=== PATIENT | male | born 1950 | race Caucasian/White ===

== ENCOUNTER 2018-07-05 19:36 | Inpatient (IN) | payer MEDICARE, MEDICAID ==
[~2018-07-05] VITALS: Ht 175.3 cm; Wt 85.3 kg
[2018-07-05] MEDS ORDERED: ALBUTEROL (0.083%) 2.5MG/3ML NEB HHN STA (20:01)
[2018-07-05] MEDS ORDERED: IPRATROPIUM BROMIDE (0.02%) 0.5MG/2.5ML NEB HHN STA (20:01)
[2018-07-05 20:42] LABS: HEMATOCRIT. 51.1 % (42.0-52.0); HEMOGLOBIN. 18.1 g/dL (14.0-18.0); MEAN CORPUSCULAR HEMOGLOBIN 34.3 pg (28.0-32.0); MEAN CORPUSCULAR VOLUME 96.9 fL (80.0-94.0); MEAN PLATELET VOLUME 7.3 fl (7.4-10.4); PLATELET 255 x1000/uL (130-400); RED BLOOD CELL COUNT 5.27 mill/uL (4.7-6.1); RED CELL DISTRIBUTION WIDTH 14.5 % (11.6-14.6)
[2018-07-05 20:56] LABS: CHLORIDE 86 mEq/L (98-107)
[2018-07-05 20:58] LABS: D-DIMER 0.28 mg/L FEU (<0.50); INR 1.1; PARTIAL THROMBOPLASTIN TIME 31.5 sec (23.4-31.0); PROTHROMBIN TIME 11.1 sec (9.1-11.1)
[2018-07-05 22:16] LABS: PLATELET ESTIMATE NORMAL
[2018-07-05] MEDS ORDERED: ZOLPIDEM TARTRATE 5MG TABLET PO PRN (22:30)
[2018-07-05] MEDS ORDERED: NITROGLYCERIN 0.4MG TABLET SL SL PRN (22:30)
[2018-07-05] MEDS ORDERED: GUAIFENESIN 200MG/10ML SUGAR FREE UDC PO PRN (22:30)
[2018-07-05] MEDS ORDERED: CLONIDINE 0.1MG TABLET PO PRN (22:30)
[2018-07-05] MEDS ORDERED: ONDANSETRON HCL 4MG/2ML INJ IV PRN (22:30)
[2018-07-05] MEDS ORDERED: TRAMADOL 50MG TABLET PO PRN (22:30)
[2018-07-05] MEDS ORDERED: NA PHOS,M-B/NA PHOS,DI-BA ENEMA 118ML PR PRN (22:30)
[2018-07-05] MEDS ORDERED: DIPHENHYDRAMINE 50MG/ML VIAL IV PRN (22:30)
[2018-07-05] MEDS ORDERED: MAGNESIUM/ALUMINUM HYDROXIDE/SIMETHICONE 30ML UDC PO PRN (22:30)
[2018-07-05] MEDS ORDERED: ACETAMINOPHEN 325MG TABLET PO PRN (22:30)
[2018-07-05] MEDS ORDERED: DOCUSATE SODIUM 100MG CAPSULE PO PRN (22:30)
[2018-07-05 23:17] LABS: CLARITY URINE CLEAR (CLEAR); COLOR URINE YELLOW (YELLOW); KETONES URINE NEGATIVE (NEGATIVE); LEUKOCYTE ESTERASE URINE NEGATIVE (NEGATIVE); NITRITE URINE NEGATIVE (NEGATIVE); OCCULT BLOOD URINE TRACE (NEGATIVE); PH URINE 8.5 (4.5-8.0); PROTEIN URINE 1+ (NEGATIVE); SPECIFIC GRAVITY URINE 1.019 (1.005-1.030)
[2018-07-05 23:26] LABS: *AMPHETAMINES SCREEN URINE NEGATIVE (NEGATIVE); *BARBITURATES SCREEN URINE NEGATIVE (NEGATIVE); *BENZODIAZEPINES SCREEN URINE NEGATIVE (NEGATIVE); *COCAINE SCREEN URINE NEGATIVE (NEGATIVE); METHADONE URINE SCREEN NEGATIVE (NEGATIVE); OPIATES URINE SCREEN NEGATIVE (NEGATIVE)
[2018-07-05 23:27] LABS: CANNABINOID URINE SCREEN NEGATIVE (NEGATIVE); PHENCYCLIDINE URINE SCREEN NEGATIVE (NEGATIVE)
[2018-07-06] VITALS (9 sets, daily range): BP systolic 105–142; BP diastolic 72–87
[2018-07-06] MEDS ORDERED: MORPHINE SULFATE 10 MG/ML CPJ IV PRN (01:00)
[2018-07-06] MEDS ORDERED: AZITHROMYCIN 500 MG in DEXT 5% WATER 250 ML IV SCH (01:00)
[2018-07-06] MEDS: DILTIAZEM HCL 60MG TABLET PO SCH ×5 (01:53→17:20)
[2018-07-06] MEDS ORDERED: ENOXAPARIN 80MG/0.8ML SYR SUBCUT SCH (04:00)
[2018-07-06] MEDS ORDERED: ENOXAPARIN 100MG/ML SYR SUBCUT SCH (04:13)
[2018-07-06 04:44] LABS: BG BASE EXCESS 5.4 mmol/L (-2.0-2.0); BG CARBOXYHEMOGLOBIN 2.6 % (0.5-1.5); BG DEOXYHEMOGLOBIN 9.4 % (0.0-5.0); BG FRACTION INSPIRED OXYGEN 60; BG HCO3 ACT 28.7 mmol/L (22.0-26.0); BG METHEMOGLOBIN 0.2 % (0.0-1.5); BG OXYGEN SATURATION 90.3 % (92.0-98.5); BG OXYHEMOGLOBIN 87.8 % (94.0-97.0); BG PCO2 37.8 mmHg (35.0-45.0); BG PH 7.499 (7.350-7.450); BG PO2 56.5 mmHg (75.0-100.0); BG SAMPLE SITE RIGHT RADIAL; BG TOTAL HEMOGLOBIN 16.8 g/dL (12.0-18.0); BG VENT MODE MASK - SIMPLE
[2018-07-06] MEDS: FAMOTIDINE 20MG TABLET PO SCH ×2 (08:53→20:44)
[2018-07-06] MEDS: GUAIFENESIN/DM 600MG/30MG ER TAB 12HR PO SCH ×2 (08:54→20:44)
[2018-07-06] MEDS: ASPIRIN 325MG EC TABLET PO SCH (08:54)
[2018-07-06] MEDS: ENOXAPARIN 100MG/ML SYR SUBCUT SCH ×2 (08:58→20:44)
[2018-07-06] MEDS ORDERED: ENOXAPARIN 60MG/0.6ML SYR SUBCUT SCH (09:00)
[2018-07-06] MEDS ORDERED: CEFTRIAXONE 1 G PREMIX 50 ML IV SCH (09:00)
[2018-07-06 10:24] LABS: HEMATOCRIT. 45.8 % (42.0-52.0); HEMOGLOBIN. 16.2 g/dL (14.0-18.0); MEAN CORPUSCULAR HEMOGLOBIN 34.4 pg (28.0-32.0); MEAN CORPUSCULAR VOLUME 97.2 fL (80.0-94.0); MEAN PLATELET VOLUME 7.3 fl (7.4-10.4); PLATELET 194 x1000/uL (130-400); RED BLOOD CELL COUNT 4.71 mill/uL (4.7-6.1); RED CELL DISTRIBUTION WIDTH 14.6 % (11.6-14.6)
[2018-07-06] MEDS: METHYLPREDNISOLONE SOD SUCC 125 MG/2 ML VIAL IV SCH ×2 (10:26→17:21)
[2018-07-06] MEDS ORDERED: [UNRECOGNIZED DRUG - OTHER] PO (11:14)
[2018-07-06 11:36] LABS: PLATELET ESTIMATE NORMAL
[2018-07-06] MEDS: CEFEPIME 1,000 MG in DEXTROSE 5% WATER 50 ML IV SCH ×2 (11:42→20:43)
[2018-07-06 11:52] LABS: CHLORIDE 89 mEq/L (98-107)
[2018-07-06] MEDS ORDERED: INFLUENZA VIRUS VACCINE(AFLURIA) 0.5ML SYR IM ONE (12:00)
[2018-07-06 12:02] LABS: CREATINE KINASE 80 IU/L (39-308)
[2018-07-06 12:04] LABS: CREATINE KINASE MB FRACTION 2.3 ng/mL (0.5-3.6)
[2018-07-06] MEDS ORDERED: ASPI-1158 PO (12:41)
[2018-07-06] MEDS ORDERED: AZAT50TA24 PO (12:41)
[2018-07-06] MEDS ORDERED: LOSA50TA20 PO (12:41)
[2018-07-06] MEDS ORDERED: OMEP40CA34 MT (12:41)
[2018-07-06] MEDS ORDERED: PRED-276 MT (12:41)
[2018-07-06] MEDS ORDERED: POTASSIUM CHLORIDE 20MEQ TABLET SR PO NR (13:00)
[2018-07-06] MEDS ORDERED: CEFEPIME 1,000 MG in DEXTROSE 5% WATER 50 ML IV SCH (14:00)
[2018-07-06] MEDS ORDERED: NON FORMULARY PATIENT HOME MED XX SCH (16:15)
[2018-07-06] MEDS ORDERED: HYDROCHLOROTHIAZIDE 25MG TABLET PO NR (16:21)
[2018-07-06] MEDS: PIRFENIDONE PO SCH (17:21)
[2018-07-06 19:02] LABS: CREATINE KINASE 74 IU/L (39-308)
[2018-07-06 19:04] LABS: CREATINE KINASE MB FRACTION 2.4 ng/mL (0.5-3.6)
[2018-07-07] VITALS (12 sets, daily range): BP systolic 113–144; BP diastolic 76–87
[2018-07-07] MEDS: AZITHROMYCIN 500 MG in DEXT 5% WATER 250 ML IV SCH (01:17)
[2018-07-07] MEDS: METHYLPREDNISOLONE SOD SUCC 125 MG/2 ML VIAL IV SCH ×3 (03:04→17:16)
[2018-07-07] MEDS: CEFEPIME 1,000 MG in DEXTROSE 5% WATER 50 ML IV SCH ×3 (03:04→20:28)
[2018-07-07] MEDS: DILTIAZEM HCL 60MG TABLET PO SCH ×4 (05:16→17:16)
[2018-07-07] MEDS: IPRATROPIUM/ALBUTEROL 0.5-3(2.5)MG/3ML NEB INH PRN ×5 (06:39→21:06)
[2018-07-07] MEDS: PIRFENIDONE PO SCH (08:00)
[2018-07-07] MEDS: GUAIFENESIN/DM 600MG/30MG ER TAB 12HR PO SCH ×2 (09:06→21:08)
[2018-07-07] MEDS: ASPIRIN 325MG EC TABLET PO SCH (09:06)
[2018-07-07] MEDS: FAMOTIDINE 20MG TABLET PO SCH ×2 (09:06→21:08)
[2018-07-07] MEDS: HYDROCHLOROTHIAZIDE 25MG TABLET PO SCH (09:06)
[2018-07-07] MEDS: ENOXAPARIN 40MG/0.4ML SYR SUBCUT SCH (09:11)
[2018-07-07] MEDS ORDERED: HYDR25TA PO (09:13)
[2018-07-07 12:19] LABS: T4 FREE 1.19 ng/dL (0.76-1.46)
[2018-07-07 14:28] LABS: BG BASE EXCESS 2.1 mmol/L (-2.0-2.0); BG CARBOXYHEMOGLOBIN 1.6 % (0.5-1.5); BG DEOXYHEMOGLOBIN 9.4 % (0.0-5.0); BG FRACTION INSPIRED OXYGEN 100; BG METHEMOGLOBIN 0.2 % (0.0-1.5); BG OXYGEN SATURATION 90.4 % (92.0-98.5); BG OXYHEMOGLOBIN 88.8 % (94.0-97.0); BG PCO2 34.3 mmHg (35.0-45.0); BG PH 7.481 (7.350-7.450); BG PO2 57.8 mmHg (75.0-100.0); BG SAMPLE SITE RIGHT RADIAL; BG TOTAL HEMOGLOBIN 16.9 g/dL (12.0-18.0); BG VENT MODE VAPOTHERM
[2018-07-07 18:04] LABS: CREATINE KINASE 51 IU/L (39-308); CREATINE KINASE MB FRACTION 1.8 ng/mL (0.5-3.6)
[2018-07-08] VITALS (13 sets, daily range): BP systolic 125–156; BP diastolic 72–95
[2018-07-08] MEDS: IPRATROPIUM/ALBUTEROL 0.5-3(2.5)MG/3ML NEB INH PRN ×3 (00:40→13:32)
[2018-07-08] MEDS: AZITHROMYCIN 500 MG in DEXT 5% WATER 250 ML IV SCH ×2 (00:44→23:59)
[2018-07-08] MEDS: DILTIAZEM HCL 60MG TABLET PO SCH ×5 (00:45→23:11)
[2018-07-08 00:58] LABS: CREATINE KINASE MB FRACTION 2.7 ng/mL (0.5-3.6)
[2018-07-08 01:00] LABS: BG BASE EXCESS 6.4 mmol/L (-2.0-2.0); BG BILEVEL POS AIRWAY PRESSURE 15/5; BG CARBOXYHEMOGLOBIN 1.6 % (0.5-1.5); BG DEOXYHEMOGLOBIN 5.4 % (0.0-5.0); BG FRACTION INSPIRED OXYGEN 100; BG HCO3 ACT 30.7 mmol/L (22.0-26.0); BG METHEMOGLOBIN 0.4 % (0.0-1.5); BG OXYGEN SATURATION 94.5 % (92.0-98.5); BG OXYHEMOGLOBIN 92.6 % (94.0-97.0); BG PCO2 42.3 mmHg (35.0-45.0); BG PH 7.478 (7.350-7.450); BG PO2 74.2 mmHg (75.0-100.0); BG SAMPLE SITE LEFT RADIAL; BG VENT MODE MASK - BIPAP; BG VENT RATE 14 set
[2018-07-08] MEDS: METHYLPREDNISOLONE SOD SUCC 125 MG/2 ML VIAL IV SCH ×5 (01:01→23:11)
[2018-07-08] MEDS: LORAZEPAM 0.5MG TABLET PO PRN ×2 (01:17→11:59)
[2018-07-08] MEDS: CEFEPIME 1,000 MG in DEXTROSE 5% WATER 50 ML IV SCH ×3 (05:29→19:42)
[2018-07-08] MEDS: GUAIFENESIN/DM 600MG/30MG ER TAB 12HR PO SCH ×2 (09:04→20:56)
[2018-07-08] MEDS: FAMOTIDINE 20MG TABLET PO SCH ×2 (09:04→20:56)
[2018-07-08] MEDS: HYDROCHLOROTHIAZIDE 25MG TABLET PO SCH (09:04)
[2018-07-08] MEDS: ENOXAPARIN 40MG/0.4ML SYR SUBCUT SCH (09:04)
[2018-07-08] MEDS: ASPIRIN 325MG EC TABLET PO SCH (09:05)
[2018-07-08 10:13] LABS: CREATINE KINASE MB FRACTION 4.2 ng/mL (0.5-3.6)
[2018-07-08 13:12] LABS: BG BASE EXCESS 4.2 mmol/L (-2.0-2.0); BG CARBOXYHEMOGLOBIN 1.4 % (0.5-1.5); BG DEOXYHEMOGLOBIN 14.3 % (0.0-5.0); BG FRACTION INSPIRED OXYGEN 100; BG HCO3 ACT 29.7 mmol/L (22.0-26.0); BG METHEMOGLOBIN 0.2 % (0.0-1.5); BG OXYGEN SATURATION 85.5 % (92.0-98.5); BG OXYHEMOGLOBIN 84.1 % (94.0-97.0); BG PCO2 46.6 mmHg (35.0-45.0); BG PH 7.422 (7.350-7.450); BG PO2 51.6 mmHg (75.0-100.0); BG SAMPLE SITE RIGHT RADIAL; BG TOTAL HEMOGLOBIN 17.2 g/dL (12.0-18.0); BG VENT MODE MASK - NRB
[2018-07-08] MEDS ORDERED: TERBUTALINE SULFATE 1MG/ML VIAL SUBCUT NR (13:30)
[2018-07-08] MEDS: MORPHINE SULFATE 4 MG/ML CPJ (NOT FOR IM USE) IV PRN ×2 (13:34→23:50)
[2018-07-08] MEDS ORDERED: FUROSEMIDE 40MG/4ML VIAL IVP NR (13:38)
[2018-07-08 15:59] LABS: HEMATOCRIT. 47.1 % (42.0-52.0); HEMOGLOBIN. 16.4 g/dL (14.0-18.0); MEAN CORPUSCULAR HEMOGLOBIN 33.9 pg (28.0-32.0); MEAN CORPUSCULAR VOLUME 97.7 fL (80.0-94.0); MEAN PLATELET VOLUME 7.1 fl (7.4-10.4); PLATELET 260 x1000/uL (130-400); RED BLOOD CELL COUNT 4.83 mill/uL (4.7-6.1); RED CELL DISTRIBUTION WIDTH 14.3 % (11.6-14.6)
[2018-07-08 16:13] LABS: CHLORIDE 91 mEq/L (98-107)
[2018-07-08 17:32] LABS: PLATELET ESTIMATE NORMAL
[2018-07-08] MEDS ORDERED: THROAT LOZENGES-BENZOCAINE/MENTH/CETYLPYRD CL LOZENGES MM PRN ×2 (21:15→22:00)
[2018-07-08] MEDS: LORAZEPAM 2MG/ML CPJ IV PRN (23:24)
[2018-07-09] VITALS (10 sets, daily range): BP systolic 116–140; BP diastolic 72–98
[2018-07-09] MEDS: CEFEPIME 1,000 MG in DEXTROSE 5% WATER 50 ML IV SCH (03:37)
[2018-07-09] MEDS: METHYLPREDNISOLONE SOD SUCC 125 MG/2 ML VIAL IV SCH ×2 (05:23→14:19)
[2018-07-09] MEDS: DILTIAZEM HCL 60MG TABLET PO SCH (05:24)
[2018-07-09] MEDS: LORAZEPAM 2MG/ML CPJ IV PRN ×2 (06:29→12:00)
[2018-07-09] MEDS: MORPHINE SULFATE 4 MG/ML CPJ (NOT FOR IM USE) IV PRN ×2 (06:29→12:00)
[2018-07-09 07:33] LABS: CHLORIDE 93 mEq/L (98-107)
[2018-07-09] MEDS: GUAIFENESIN/DM 600MG/30MG ER TAB 12HR PO SCH (08:21)
[2018-07-09] MEDS: ASPIRIN 325MG EC TABLET PO SCH (08:21)
[2018-07-09] MEDS: HYDROCHLOROTHIAZIDE 25MG TABLET PO SCH (08:21)
[2018-07-09] MEDS: ENOXAPARIN 40MG/0.4ML SYR SUBCUT SCH (08:21)
[2018-07-09] MEDS: IPRATROPIUM/ALBUTEROL 0.5-3(2.5)MG/3ML NEB INH PRN (08:48)
[2018-07-09] MEDS ORDERED: FUROSEMIDE 20MG/2ML VIAL IVP SCH (09:00)
[2018-07-09 11:23] LABS: BG BASE EXCESS 5.8 mmol/L (-2.0-2.0); BG BILEVEL POS AIRWAY PRESSURE 15/5; BG CARBOXYHEMOGLOBIN 1.6 % (0.5-1.5); BG FRACTION INSPIRED OXYGEN 100; BG HCO3 ACT 31.6 mmol/L (22.0-26.0); BG METHEMOGLOBIN 0.3 % (0.0-1.5); BG OXYGEN SATURATION 86.7 % (92.0-98.5); BG OXYHEMOGLOBIN 85.1 % (94.0-97.0); BG PCO2 49.2 mmHg (35.0-45.0); BG PH 7.426 (7.350-7.450); BG PO2 53.1 mmHg (75.0-100.0); BG SAMPLE SITE RIGHT RADIAL; BG TOTAL HEMOGLOBIN 17.3 g/dL (12.0-18.0); BG VENT MODE MASK - BIPAP; BG VENT RATE 16 set
[2018-07-09] MEDS ORDERED: LORAZEPAM 2MG/ML CPJ IV PRN (12:00)
[2018-07-09] MEDS ORDERED: HALOPERIDOL LACTATE 5MG/ML VIAL IM PRN (12:00)
[2018-07-09] MEDS ORDERED: MORPHINE SULFATE 100 MG in DEXT 5% WATER 90 ML IV PRN (12:00)
[2018-07-09] MEDS ORDERED: METHYLPREDNISOLONE SOD SUCC 40 MG/ML VIAL IV ONE (12:00)
[2018-07-09] MEDS ORDERED: MORPHINE SULFATE 250 MG in DEXT 5% WATER 240 ML IV PRN (13:30)
[2018-07-09] MEDS ORDERED: METHYLPREDNISOLONE SOD SUCC 1,000 MG in DEXT 5% WATER 250 ML IV SCH (13:30)
[2018-07-10] MEDS ORDERED: METHYLPREDNISOLONE SOD SUCC 1,000 MG in DEXT 5% WATER 250 ML IV SCH (15:00)
== END 2018-07-09 20:20 | disposition expired | DRG 193 ==
LOC: ER 19:36 → 6WST 22:26 → SUPCPDRO 22:27 → EDBEDREQTM 22:28 → EDBEDREQ 22:28 → ENRESERV 23:10 → 5EST 07-06 05:11 → 6EST 07-09 15:48
PROVIDERS: ADMIT Internal Medicine; ATTEND Internal Medicine
PROC: 5A09357 Assistance with Respiratory Ventilation, Less than 24 Consecutive Hours, Continuous Positive Airway Pressure (ICD-10-PCS; principal; 2018-07-08)
DX: J18.9 Pneumonia, unspecified organism (principal); J96.01 Acute respiratory failure with hypoxia; E44.1 Mild protein-calorie malnutrition; E87.1 Hypo-osmolality and hyponatremia; I48.92 Unspecified atrial flutter; Z66 Do not resuscitate; J84.10 Pulmonary fibrosis, unspecified; I10 Essential (primary) hypertension; Z51.5 Encounter for palliative care; Z79.82 Long term (current) use of aspirin; Z79.899 Other long term (current) drug therapy; Z99.81 Dependence on supplemental oxygen; Z68.27 Body mass index [BMI] 27.0-27.9, adult; Z88.0 Allergy status to penicillin; Z23 Encounter for immunization
CPT/HCPCS: 36415; 36600; 71045; 78580; 80048; 80061; 80305; 82375; 82550; 82553; 82805; 82962; 83036; 83880; 84439; 84443; 84484; 85379; 87804; 90686; 93005; 93306; 93970; 94640; 94660; 99285; J0456; J0692; J1200; J1650; J1940; J2060; J2270; J2930; J3105; J7050; J7060; J7611; J7620